=== PATIENT | female | born 1960 | race Caucasian/White ===

== ENCOUNTER 2017-04-01 05:00 | Day surgery (SDC) | payer OTHER ==
[2017-03-29 11:50] LABS: ASPARTATE AMINO TRANSFERASE 12 U/L (15-37); BLOOD UREA NITROGEN 13 mg/dL (7-18)
[~2017-04-01] VITALS: Ht 162.6 cm; Wt 65.9 kg
[~2017-04-01 05:00] MED LIST: LACT1CAP35 PO; LANS15TA5 PO; LEVO750T26 PO
[2017-04-01] MEDS ORDERED: MIDAZOLAM 1 MG/ML, 5ML ONE (07:43)
[2017-04-01] MEDS ORDERED: ISOPROTERENOL 0.2MG/ML, 5ML ONE (07:43)
[2017-04-01] MEDS ORDERED: FENTANYL PF 100 MCG/2ML ONE (07:43)
[2017-04-01] MEDS ORDERED: LIDOCAINE 2%, 20ML ONE (07:43)
[2017-04-01] MEDS ORDERED: ADENOSINE 6 MG/2 ML ONE (08:51)
== END 2017-04-01 14:36 | disposition home or self-care (01) ==
LOC: CACL 05:00
PROVIDERS: ATTEND Internal Medicine Cardiovascular Disease
DX: I47.1 Supraventricular tachycardia (principal); Z98.890 Other specified postprocedural states; Z88.3 Allergy status to other anti-infective agents
CPT/HCPCS: 36415; 71020; 80053; 85025; 85610; 85730; 93005; 93613; 93621; 93623; 93653; 99156; 99157; C1730; C1894; C2630